=== PATIENT | female | born 1980 | race Caucasian/White ===

== ENCOUNTER → 2019-05-27 08:31 | Outpatient (CLI) | payer OTHER, MEDICAID, SELFPAY ==
--- NOTE | 2019-05-27 | DI.US.S_ITS ---
PROCEDURE: US OB >= 14 WEEKS FETUS INDICATIONS: anatomy scan OUTSIDE/PRIOR DATING DATA: Last menstrual period (LMP): 12/28/18. LMP-based estimated date of delivery (CHELSY): 10/04/19. First dating scan (date and location): 05/27/19. Estimated date of delivery (CHELSY) from first dating scan: 10/01/19. TECHNIQUE: Real-time scanning was performed of the fetus, with image documentation and biometric measurements. COMPARISON: None. FINDINGS: General: A single living intrauterine gestation is present. Presentation: Transverse. Placenta: Placental position is anterior, without previa. Amniotic fluid index: 15.3 cm, normal range is 5-24 cm. heart rate: 141 beats per minute. Maternal cervical canal: 5.4 cm long. Normal lower limit is 2.5 cm. biometrics: Biparietal diameter: 21 weeks 3 days Head circumference: 21 weeks 6 days Abdominal circumference: 23 weeks Femur length: 21 weeks 2 days Estimated gestational age from initial scan/LMP: 21 weeks 3 days Composite gestational age from present scan: 21 weeks 6 days Estimated weight and percentile: 479 g; 81st percentile Measurement variability for biometric dating: +/- 7 days from 14 weeks to 15 weeks 6 days gestation, +/- 10 days from 16 weeks to 21 weeks 6 days gestation, +/- 2 weeks from 22 weeks to 27 weeks 6 days gestation, +/- 3 weeks for 28 weeks gestation or later. weight reference: 4500 g or EFW >90/95% is considered macrosomia or large for gestational age. EFW <10% is small for gestational age. EFW 5% or less is considered intra-uterine growth restriction. Anatomic survey: Neuro: Ventricles are non-dilated at less than 10 mm. Cisterna magna is normal at 3-11 mm. Cerebellum is normal in size and morphology. Nuchal skin fold: Normal at less than 6 mm between 14-21 weeks gestational age. Face: Nose and lips are normal. Facial profile Not well-seen. Spine: No evidence for spina bifida. Heart: 4-chambered heart is present, and cardiac outflow tracts are not well seen.. Diaphragm: Diaphragm is intact. Stomach: Left-sided stomach is present. Kidneys: No hydronephrosis. Normal is less than 5 mm in 2nd trimester, less than 7 mm in 3rd trimester. Cord: 3-vessel cord has orthotopic insertion. Bladder: Left lower extremity not well seen. Extremities: All 4 extremities identified. IMPRESSION: 1. 21 weeks 6 days torres IUP corresponding to ultrasound CHELSY of 10/01/19. 2. Left lower extremity, cardiac outflow tracts and facial profile not well-visualized; otherwise normal anatomy. Followup recommended. Dictated by: Jaime ALEJO Interpreted: Radha Rodarte MD on 05/27/2019 at 9:59 Approved by: Radha Rodarte MD, PhD on 05/27/2019 at 10:27
== END ==
PROVIDERS: PCP Nurse Practitioner Obstetrics & Gynecology; Visit Provider Nurse Practitioner Obstetrics & Gynecology
DX: Z36.89 Encounter for other specified antenatal screening (principal); Z3A.21 21 weeks gestation of pregnancy
CPT/HCPCS: 76811

== ENCOUNTER → 2019-06-23 07:02 | Outpatient (CLI) | payer OTHER, MEDICAID, SELFPAY ==
--- NOTE | 2019-06-23 | DI.US.S_ITS ---
PROCEDURE: US OB FOLLOW UP INDICATIONS: FOLLOW-UP ANATOMY OUTSIDE/PRIOR DATING DATA: Last menstrual period (LMP): 12/28/18. LMP-based estimated date of delivery (CHELSY): 10/04/19. First dating scan (date and location): 05/27/19. Estimated date of delivery (CHELSY) from first dating scan: 10/01/19. TECHNIQUE: Real-time scanning was performed of the fetus, with image documentation. Endovaginal scanning: Performed COMPARISON: [facility], OB >= 14 WEEKS FETUS, 05/27/2019, 8:47. FINDINGS: A single living intrauterine gestation is present. Presentation: Vertex Placenta: Not evaluated. Amniotic fluid index: 14.8 cm, normal range is 5-24 cm. heart rate: 148 beats per minute. Maternal cervical canal: Not measured. Estimated gestational age from initial scan: 25 weeks 5 days. Right lateral ventricle measures 9 mm at the atrium. Left lateral ventricle is not visualized and cannot be evaluated. Right ventricular outflow tract and left ventricular outflow tract are within normal limits. left lower extremity is normal. profile, nose/lips are within normal limits. face not well visualized do to advanced gestational age and position. IMPRESSION: 1. Single living intrauterine fetus. 2. Limited anatomic survey demonstrates facial profile, nose/lips, cardiac outflow tracts and left lower extremity which are within normal limits. face not well visualized do to gestational age and position. Right cerebral ventricle is nondilated the less than 10 mm. Left cerebral ventricle is not visualized and cannot be evaluated. Dictated by: Radha Rodarte MD, PhD on 06/23/2019 at 11:50 Approved by: Radha Rodarte MD, PhD on 06/23/2019 at 11:58
[2019-06-23 08:52] LABS: Hematocrit 30.9 % (36-46); Mean Corpuscular HGB Conc 35.7 % (30-36); Mean Corpuscular Hemoglobin 34.1 PG (26-34); Mean Corpuscular Volume 95.4 fL (80-100); Platelet Count 203 X10^3/uL (150-400); Red Blood Cell Count 3.24 X10^6/uL (4.0-5.2); Red Cell Distribution Width 12.8 % (11.6-14.8); White Blood Cell Count 7.4 X10^3/uL (4.5-11.0)
[2019-06-23 09:04] LABS: Glucose Fasting 104 mg/dL (70-100)
[2019-06-23 10:20] LABS: Thyroid Stimulating Hormone 2.09 uIU/mL (0.47-4.68)
[2019-06-23 10:32] LABS: Glucose Tol Interpretation INTERPRETATION
[2019-06-23 10:39] LABS: Glucose 1 Hour 187 mg/dL (70-170)
[2019-06-23 12:04] LABS: Glucose 2 Hour 109 mg/dL (70-140)
== END ==
PROVIDERS: PCP Nurse Practitioner Obstetrics & Gynecology; Visit Provider Nurse Practitioner Obstetrics & Gynecology
DX: Z36.2 Encounter for other antenatal screening follow-up (principal); O09.522 Supervision of elderly multigravida, second trimester; E03.9 Hypothyroidism, unspecified; Z13.1 Encounter for screening for diabetes mellitus; Z3A.25 25 weeks gestation of pregnancy
CPT/HCPCS: 36415; 76816; 82951; 82952; 84436; 84443; 85027

== ENCOUNTER → 2019-07-23 13:00 | Outpatient (CLI) | payer OTHER, MEDICAID, SELFPAY ==
--- NOTE | 2019-07-23 13:59 | DIET.PN ---
INITIAL GESTATIONAL DIABETES ASSESSMENT ASSESS:? Ms. Rockwell is referred for gestational diabetes. She reports family hx of diabetes. This is her second with GDM. She took metformin and discontinued monitoring BG. She reports starting on metformin x 2 wks ago and has noticed FBG going up. She reports only mild changes in her daily eating habits, but did notice a reduced FBG after drinking more water and walking the day before. ? CHELSY:?Oct 01, 2019 ? WKS GESTATION:?? 29 wks ?LABS: OGTT: 104 H 1 hr: 187 2hr: 109 ? MEDS: metformin 500 mg BID ? DIET:? B: eggs, toast/eng muffin, grapefruit L: leftovers D: beef stew; pasta dish w/ protein; grilled cheese sandwich; veggie heavy Sn: ice cream, cashews, cheese sticks, oranges, berries ? HT:? 64? PRE-PREG WT:? 195 lb ? PRE-PREG BMI:???33.5 ? CURRENT WT : 203 lb ? TOTAL WT GAIN:? EXERCISE: walking, house chores NUTRITION DX 1. Altered nutrition related lab values r/t gestational diabetes as evidenced by recent labs (OGGT). INTERVENTION 1. Discussed pathophysiology of gestational diabetes and impact of hormone and nutrition/diet on blood sugar control.? Discussed fed versus non-fed state.? 2. Recommended checking fasting, pre-meal and 1hr post prandial (3x/day).? Discussed goals for glycemic control (<95 FBG, <140 1-hr PP).? 3. Discussed the effect of carbohydrates/protein/fat on blood sugar control.? Stressed importance of consistent carbohydrate intake at each meal and provided instructions for recommended servings/portions of carbohydrates/protein per meal.? Provided pt with educational material. 4. Introduced carbohydrate counting and measuring carbohydrate content via servings sizes and reading nutrition labels.? Provided handouts.? Pt will need further review 5. Discussed importance of meal timing and not going >3 hours between meals.? Provided sample meal schedule for pt.? Pt agreeable.?? 6. Discussed importance a pre-nathan vitamin and including food sources of calcium, vitamin D, iron and folic acid for baby and mother?s nutrition support. 7. Discussed caffeine intake. Recommend no more than 200 mg/day (1 cup coffee). 8. Discussed rule of 15 for hypoglycemia. 9. Recommend patient purchase Urine Ketone strips and instructed on use and when to contact provider. 10. Recommended patient continue exercise as appropriate per PCP approval. 11. Patient may need additional medication management, will follow-up with plan of care at next visit after reviewing glucose results.? MONITOR/EVAL: Follow up scheduled X 1 week. Good compliance expected. Review: carb sources, carb counting, portion size, meal timing, BG log, weight.
== END ==
PROVIDERS: PCP Nurse Practitioner Obstetrics & Gynecology; Referring Provider Nurse Practitioner Obstetrics & Gynecology; Visit Provider Nurse Practitioner Obstetrics & Gynecology
DX: O24.415 Gestational diabetes mellitus in pregnancy, controlled by oral hypoglycemic drugs (principal); Z3A.29 29 weeks gestation of pregnancy; Z71.3 Dietary counseling and surveillance
CPT/HCPCS: G0108

== ENCOUNTER → 2019-07-30 14:04 | Outpatient (CLI) | payer OTHER, MEDICAID, SELFPAY ==
--- NOTE | 2019-07-30 15:42 | DIET.PN ---
Gestational Diabetes Follow Up ? ASSESS:? Mrs. Rockwell is in for GDM 1 week follow up. She remains concerned with elevated blood sugar and is feeling overwhelmed as she has been making dietary changes. She has increased her protein intake with meals and is avoiding fruit and dairy after dinner. She admits she does not always think about what is in her food (ex. Pulled pork mac n cheese). She does have some personal stress in her life right now and is not on her normal sleep patterns. Discussed how stress and sleep patterns effect glucose control. ? LABS: FB-112 (0% within range) 1 hr PP:??128-150 (79% within range) ? Weight: 201 lb (lost 2 lb in 1 week) Medication: Metformin 500 mg pm ? NUTRITION Dx? 1. Altered nutrition related labs r/t gestational diabetes aeb recent labs (OGGT). ? INTERVENTION? 1. Reviewed blood sugar log and implications/reasons for elevated/decreased blood sugar.? Pt with good understanding.? 2. Reviewed carbohydrate counting and importance of consistent carbohydrate intake.? 3. Reviewed meal intake and importance of balanced meals. 4. Discussed evening snacks ideas. Recommended avoiding milk and fruit after dinner to help with elevated FBG. 5. Recommended pt avoid processed foods as much as possible and aim to get most nutrients from refrigerated options. Suggested cutting up vegetables and making protein rich salads (chicken/egg salad) ahead of time for quick snacks. 6. Discussed possible need for increased medication management if >80% of fasting and post-prandial readings are not within recommended values (FBG<95, 1 hr PP <140). Pt agreeable. 7. Recommended aiming for 20-30 min of moderate exercise each day at minimum 10 min increments. ? PLAN: She is willing to avoid as many processed foods as she can and will begin making snacks that are readily available to avoid high sugar snacks. She has agreed to walking daily while her toddler is napping. Discussed possibility of increasing metformin to 500 mg am/pm. Will discuss with provider. MONITOR/EVALUATE: Pt receptive to information provided.? Will schedule follow up in 4 weeks. Patient will call sooner if blood glucose is not in range.
== END ==
PROVIDERS: PCP Nurse Practitioner Obstetrics & Gynecology; Referring Provider Nurse Practitioner Obstetrics & Gynecology; Visit Provider Nurse Practitioner Obstetrics & Gynecology
DX: O24.415 Gestational diabetes mellitus in pregnancy, controlled by oral hypoglycemic drugs (principal); Z71.3 Dietary counseling and surveillance
CPT/HCPCS: G0108

== ENCOUNTER → 2019-09-09 12:49 | Outpatient (CLI) | payer OTHER, MEDICAID, SELFPAY ==
--- NOTE | 2019-09-09 | DI.US.S_ITS ---
PROCEDURE: US OB LIMITED INDICATIONS: EFW; BPP OUTSIDE/PRIOR DATING DATA: Last menstrual period (LMP): 12/28/18. LMP-based estimated date of delivery (CHELSY): 10/04/19. First dating scan (date and location): 05/27/19. Estimated date of delivery (CHELSY) from first dating scan: 10/01/19. TECHNIQUE: Real-time scanning was performed of the fetus, with image documentation and biometric measurements. COMPARISON: None. FINDINGS: General: A single living intrauterine gestation is present. Presentation: Vertex. Placenta: Placental position is anterior, without previa. Amniotic fluid index: 13.5 cm, normal range is 5-24 cm. heart rate: 147 beats per minute. Maternal cervical canal: Not well-seen biometrics: Biparietal diameter: 36 weeks 2 days Head circumference: 39 weeks Abdominal circumference: 40 weeks Femur length: 36 weeks 6 days Estimated gestational age from initial scan: 36 weeks 6 days Composite gestational age from present scan: 38 weeks 0 days Estimated weight and percentile: 3570 g; 94% of Measurement variability for biometric dating: +/- 7 days from 14 weeks to 15 weeks 6 days gestation, +/- 10 days from 16 weeks to 21 weeks 6 days gestation, +/- 2 weeks from 22 weeks to 27 weeks 6 days gestation, +/- 3 weeks for 28 weeks gestation or later. weight reference: 4500 g or EFW >90/95% is considered macrosomia or large for gestational age. EFW <10% is small for gestational age. EFW 5% or less is considered intra-uterine growth restriction. Normal biophysical profile of the fetus during 2 points for tone, movement, respiration and amniotic fluid. Other: Normal appearance of the left lateral ventricle measuring 9 mm. Normal appearance of the left cardiac outflow tract, left lower extremity including the left ankle, face not well visualized. IMPRESSION: 1. Single living IUP redemonstrated than interval growth is greater than normal. Developing macrosomia cannot be excluded. 2. Normal biophysical profile. 3. face again not well seen secondary to positioning otherwise normal appearance of the lateral ventricle, cardiac outflow tracts, left lower extremity including the left ankle. Dictated by: Jaime Engel [facility] Interpreted: Rohit Rdz MD on 09/09/2019 at 14:37 Approved by: Rohit Rdz M.D. on 09/09/2019 at 15:57
== END ==
PROVIDERS: PCP Nurse Practitioner Obstetrics & Gynecology; Referring Provider Nurse Practitioner Obstetrics & Gynecology; Visit Provider Nurse Practitioner Obstetrics & Gynecology
DX: O26.843 Uterine size-date discrepancy, third trimester (principal); O24.415 Gestational diabetes mellitus in pregnancy, controlled by oral hypoglycemic drugs; Z3A.38 38 weeks gestation of pregnancy
CPT/HCPCS: 76815; 76819

== ENCOUNTER → 2019-09-11 14:15 | Outpatient (ROUT) | payer OTHER, MEDICAID, SELFPAY | PROVIDERS: PCP Nurse Practitioner Obstetrics & Gynecology; Visit Provider Nurse Practitioner Obstetrics & Gynecology | DX: Z36.85 Encounter for antenatal screening for Streptococcus B (principal) | CPT/HCPCS: 87081 ==

== ENCOUNTER → 2019-09-23 12:48 | Outpatient (CLI) | payer OTHER, MEDICAID, SELFPAY ==
--- NOTE | 2019-09-23 | DI.US.S_ITS ---
PROCEDURE: US OB LIMITED INDICATIONS: GESTATIONAL DIABETES MELLITUS IN OUTSIDE/PRIOR DATING DATA: Last menstrual period (LMP): 12/28/18. LMP-based estimated date of delivery (CHELSY): 10/04/19. First dating scan (date and location): 05/27/19. Estimated date of delivery (CHELSY) from first dating scan: 10/01/19. TECHNIQUE: Real-time scanning was performed of the fetus, with image documentation. Endovaginal scanning: Not performed COMPARISON: [facility], US OB LIMITED, 09/09/2019, 12:57. FINDINGS: A single living intrauterine gestation is present. Presentation: Vertex Placenta: Placental position is anterior, without previa. Amniotic fluid index: 23.6 cm, normal range is 5-24 cm. largest pocket measures 8.6 cm. heart rate: 158 beats per minute. Maternal cervical canal: Not well-seen. BPD: 9.4 cm, 38 weeks, 2 days HC: 34 cm, 39 weeks, 3 days AC: 36 cm, 40 weeks, one day FL.: 7.9 cm, 40 weeks, one day Estimated gestational age from initial scan: 38 week 6 days Estimated gestational age from current scan: 39 weeks, 4 days. Estimated weight is 3889 g, 87th percentile. biophysical profile score tone: 2 movement: 2 Respiration: 2 Largest pocket: 0 IMPRESSION: 1. Single live intrauterine . Normal growth. 2. Suggestion of polyhydramnios. biophysical profile score is 6/8 as above. Dictated by: Solo Ortiz M.D. on 09/23/2019 at 13:57 Approved by: Solo Ortiz M.D. on 09/23/2019 at 14:02
== END ==
PROVIDERS: PCP Nurse Practitioner Obstetrics & Gynecology; Referring Provider Nurse Practitioner Obstetrics & Gynecology; Visit Provider Nurse Practitioner Obstetrics & Gynecology
DX: O24.415 Gestational diabetes mellitus in pregnancy, controlled by oral hypoglycemic drugs (principal); Z3A.38 38 weeks gestation of pregnancy
CPT/HCPCS: 76815

== ENCOUNTER 2019-09-28 07:38 | Inpatient (IN) | payer OTHER, MEDICAID, SELFPAY ==
--- NOTE | 2019-09-28 07:53 | PM.OBHP.1 ---
OB HPI Date/Time Date of admission: 09/28/19 Date Patient Seen: 09/28/19 Time Patient Seen: 07:45 History of Present Condition Chief complaint: Observation : 3 Para: 1 Estimated Date of Delivery: 10/04/19 Estimated Gestational Age (weeks): 39.1 Narrative: Sheri Rockwell is a 38 year old female here for IOL for GDMA2. Had Scanlon balloon placed in clinic last night that was able to immediately be pulled through the cervix. Was able to sleep well. IOL consent signed 09/27/19. Planning epidural. complicated by obesity, hypothyroid, anemia and GDMA2 (Metformin). 36wk growth US EFW 3570g/94%. 38wk BPP-8/8, LASHAE-23.6cm. Indications Indication for induction OB: medical complication (GDMA2) History of Present care: good care, initiated at week # (12), number of visits (12) and pounds weight gain (13) Dating criteria: LMP confirmed by 1st trimester US Ultrasounds: normal mid trimester US Obstetrical complications: gestational diabetes Medical complications: other (Obesity, hypothyroid, AMA) Preadmission Labs Blood type: O (+) positive -: Antibody screen: negative, GBS status: negative, HBsAG: negative, HIV: negative and RPR/VDLR: negative -: Chlamydia screen: not detected and Gonorrhea screen: not detected -: Rubella: immune HCT: 30.9 HCAB: negative Cell-free DNA: negative, female 3 hr GTT: 2 hr (104/187/109) Prior (ies) History: 04/05/2016: NSVB- IOL @ 37wks for oligohydramnios, epidural, male ([facility]), intact perineum, depression Evaluation Evaluation Baseline heart rate: 13 Variability: Moderate (11-25) monitor accelerations: Present monitor decelerations: Variable Uterine Contraction Intensity: Mild Category of Tracing: I Cervical dilation (cm): 4 Cervical effacement (%): 70 station: -2 PFSH Family History (Updated 09/28/19 @ 08:10 by Marla Lugo CNM) Mother Diabetes mellitus Social History (Updated 09/28/19 @ 08:10 by Marla Lugo CNM) marital status: number of children: 3 household members: spouse lives independently: Yes housing: house pets and animals: Yes education level: college Meds Home Medications and Allergies Home Medications Medication Instructions Recorded Confirmed Type amoxicillin 875 mg-potassium 1 tab PO BID #20 tab 07/30/18 Rx clavulanate 125 mg tablet ferrous sulfate 09/28/19 History levothyroxine 09/28/19 History metformin 2,000 mg 09/28/19 History Allergies Allergy/AdvReac Type Severity Reaction Status Date / Time No Known Drug Allergies Allergy Verified 07/30/18 12:37 Review of Systems Review of Systems ROS: Yes All systems reviewed with the patient and are negative except as otherwise documented Exam Vital Signs (past 8 hours): BP 127/80, HR79, T35.6C Temporal Chest Chest: normal inspection of the chest Resp Effort & Inspection: normal respiratory effort Auscultation: clear to auscultation bilaterally Cardio Rate: regular rate Rhythm: regular rhythm Heart Sounds: S1 normal and S2 normal OB/External & Speculum: deferred Presentation: vertex Estimated Weight (lbs): 8 Psych Appearance: grossly normal and well kempt Affect: animated and anxious affect Attitude: cooperative Thought Content: normal Assessment and Plan Assessment and Plan Assessment and Plan narrative: Admit, routine orders w/ preeclampsia panel and random glucose added. Begin pitocin titration to adequate contraction pattern. Epidural when requested. Will consider AROM after adequate contraction pattern established. Reassess in 4-6 hours or sooner, PRN. Time Spent with Patient Total time spent with greater than 50% in coordination of care (as documented) at patient's floor/unit and/or counseling patient:: 25 - 35 minutes
[2019-09-28] MEDS: OXYTOCIN PREMIX 30 UNIT/500 ML PLAST..BAG IV (09:03)
[2019-09-28] MEDS: LACTATED RINGERS 1,000 ML 100 ML IV ×2 (09:03→19:42)
[2019-09-28 09:06] LABS: Add Manual Diff / Slide Review NO; Basophils Absolute Auto 0 /uL (0-100); Basophils Percent Auto 0.2 % (0-2); Eosinophils Absolute Auto 100 /uL (0-450); Hemoglobin 12.5 g/dL (12.0-16.0); Lymphocytes Absolute Auto 1700 /uL (1100-4500); Lymphocytes Percent Auto 23.4 % (25-40); Mean Corpuscular HGB Conc 34.7 % (30-36); Mean Corpuscular Hemoglobin 34.2 PG (26-34); Mean Corpuscular Volume 98.4 fL (80-100); Monocytes Absolute Auto 400 /uL (0-900); Neutrophils Absolute Auto 4900 /uL (1500-7000); Neutrophils Percent Auto 68.4 % (50-75); Platelet Count 194 X10^3/uL (150-400); Red Blood Cell Count 3.66 X10^6/uL (4.0-5.2); Red Cell Distribution Width 13.5 % (11.6-14.8); White Blood Cell Count 7.2 X10^3/uL (4.5-11.0)
[2019-09-28 09:19] LABS: Glucose 136 mg/dL (70-100)
[2019-09-28 09:20] LABS: Aspartate Aminotransferase 37 IU/L (14-36); Blood Urea Nitrogen 9 mg/dL (7-17); Estimated Glomerular Filt Rate > 60.0 mL/min (>60); Uric Acid 4.3 mg/dL (2.5-6.2)
[2019-09-28 11:48] LABS: Creatinine Urine Random 143.8 mg/dL; Protein (Total) Urine Random 20 mg/dL (0-12); Protein Creatinine Ratio Urine 0.13 GRAM/24H
--- NOTE | 2019-09-28 13:08 | PM.OBPNLAB ---
Date/Time Date Patient Seen: 09/28/19 Time Patient Seen: 12:45 Pain Control Pain control: tolerating well and epidural Comments: Patient elected epidural prior to AROM, remained comfortable prior to placement. Pelvic Exam Dilation (cm): 5 Effacement (%): 70 station: -2 Amniotic membrane status: Ruptured Comments: AROM @ 1248 for copious, clear fluid Contractions Contractions on admission: none Monitor mode: External Pitocin rate (mU/min): 14 Contraction frequency (min): 3 Contraction duration (min): 1 Contraction pattern: Regular Contraction intensity: Mild Status status: Category l Heart Rate Baseline: 130 Monitor Decelerations: Variable (rare, mild) Monitor Variability: Moderate Assessment and Plan Assessment: induction ongoing Plan: continuous present management Comments: Reassess in 4 hours or sooner, PRN. OB Back-up/ aware of patient admit status and POC.
[2019-09-28 13:52] VITALS: BP 127/80
--- NOTE | 2019-09-28 16:53 | PM.OBPNLAB ---
Date/Time Date Patient Seen: 09/28/19 Time Patient Seen: 16:45 Pain Control Pain control: tolerating well and epidural Pelvic Exam Dilation (cm): 7 Effacement (%): 70 station: -2 Amniotic membrane status: Leaking Comments: clear Contractions Contractions on admission: none Monitor mode: External Pitocin rate (mU/min): 11 Contraction frequency (min): 3 Contraction duration (min): 1 Contraction pattern: Regular Contraction intensity: Mild Status status: Category ll Heart Rate Baseline: 135 Monitor Accelerations: Present Monitor Decelerations: Variable Monitor Variability: Moderate Comments: Overall reassuring Assessment and Plan Assessment: induction ongoing Plan: continuous present management Comments: Encourage frequent position changes w/ peanut ball. Reassess in 4 hours or sooner, PRN.
[2019-09-28] MEDS: FENT 2MCG/ML BUPIV 0.125% EPI 200 MCG/100 ML PLAST..BAG 10 MCG EPIDURAL ×2 (20:05→21:21)
--- NOTE | 2019-09-28 20:47 | PM.OBPNLAB ---
Date/Time Date Patient Seen: 09/28/19 Time Patient Seen: 08:35 Pain Control Pain control: epidural Comments: C/O increased pain, low abdominal, above PS. VS: 142/76, HR85, T37.0C Temporal Pelvic Exam Dilation (cm): 9 Effacement (%): 100 station: 0 Amniotic membrane status: Leaking Comments: amniotic fluid remains clear Contractions Date/Time contractions began: 1245 Contractions on admission: none Monitor mode: External Pitocin rate (mU/min): 11 Contraction frequency (min): 3 Contraction duration (min): 60 Contraction pattern: Regular Contraction intensity: Mild Status status: Category ll Heart Rate Baseline: 135 Monitor Accelerations: Present Monitor Decelerations: Variable (mild) Monitor Variability: Moderate Comments: overall reassuring Assessment and Plan Assessment: induction ongoing Plan: continuous present management Comments: at bedside for epidural bolus. Reassess in 1-2 hours or sooner, PRN. Anticipate NSVB.
--- NOTE | 2019-09-28 23:10 | PM.OBPRVD ---
 Events: Gestational Diabetes (GDMA2) and Labor Induction Labor & Delivery Delivery date: 09/28/19 Intrapartal events: None Induction method: per pitocin protocol (then AROM) Delivery augmentation: pitocin Delivery monitor: external FHT and external uterine Route of delivery: L&D Laceration Description: None Estimated blood loss (mL): 100 Anesthesia type: Epidural Narrative: After laboring down for 1 hour, pt was encouraged to push at C/C/+1. Patient pushed well with coaching and encouragement. NSVB of a viable baby girl in direct OA position w/ transverse shoulder. There was no nuchal cord or shoulder dystocia. Mother had to increase pushing effort for delivery of abdomen and buttocks. was placed on maternal abdomen for drying and stimulation. Remaining 30 units of pitocin in 500mL LR was increased to 350mL for active management of the third stage of labor. Cord was double clamped by CNM and cut by FOB w/ <60 seconds of DCC, per parents request. Cord blood sample was collected. Gentle cord traction and single maternal push led to spontaneous, Schultze delivery of an apparently intact placenta, membranes and 3VC. Fundus immediately firm and bleeding minimal. Vagina and perineum inspected and intact. QBL 100mL. Both mother and baby stable as I left the room. Baby 1: Infant gender: Female Presentation: vertex Placenta delivery description: Spontaneous cord vessel description: 3 Vessels score (1 min): 7 score (5 min): 8 Narrative: Plan for aftercare: Routine PP orders
[2019-09-29] MEDS: LANOLIN OINT 7 GM 1 APPLIC TOP (01:00)
[2019-09-29] MEDS: ONDANSETRON 4 MG/2 ML INJ IV (01:14)
[2019-09-29] MEDS: OXYCODONE IR 5 MG TABLET PO ×2 (01:39→05:44)
[2019-09-29] MEDS: KETOROLAC 30 MG/ML VIAL IV (01:40)
[2019-09-29] MEDS: fentaNYL 100 MCG/2 ML INJ IV (02:36)
--- NOTE | 2019-09-29 03:19 | PM.PN.1 ---
Subjective Subjective Date Patient Seen: 09/29/19 Time Patient Seen: 02:45 Interval history: Called by RN for patient complaint of pain and rectal pressure. Patient on toilet, holding pressure on her anus, writhing in pain. Has received Toradol 30mg IV and oxycodone 5mg PO >30 minutes ago with no relief. Patient given Fentanyl 100mcg iV with good pain relief for 15 minutes, then return of pain. Exam: moderate generalized edema to vagina and perineum. Fullness between posterior vaginal floor and rectum. Suspect hematoma. Patient verbally consented to small exploration of mass in the room. Posterior vaginal floor cleansed w/ betadine. 2% lidocaine local given (unable to draw back blood from the syring) and small incision made w/ 10 blade, minimal blood return. Incision hemostatic w/ pressure, single lap left in place. OC manager fashion consulted by phone: recommended antibiotics and longer acting opioids overnight and he will examine in the morning. Orders placed and patient and her notified. Exam Vital Signs (past 8 hours): BP 136/75, HR 93, RR18. T98.8F Temporal Objective Labs Result Diagrams: 09/28/19 08:53 09/28/19 08:53 Labs: Laboratory Results - last 24 hr 09/28/19 09/28/19 09/28/19 08:53 08:53 08:53 WBC 7.2 RBC 3.66 L Hgb 12.5 Hct 36.0 MCV 98.4 MCH 34.2 H MCHC 34.7 RDW 13.5 Plt Count 194 Neut % (Auto) 68.4 Lymph % (Auto) 23.4 L [place] % (Auto) 6.0 Eos % (Auto) 2.0 Baso % (Auto) 0.2 Neut # (Auto) 4900 Lymph # (Auto) 1700 [place] # (Auto) 400 Eos # (Auto) 100 Baso # (Auto) 0 BUN 9 Creatinine 0.41 L Estimated GFR > 60.0 BUN/Creatinine Ratio 22.0 Glucose Uric Acid 4.3 AST 37 H U Random Total Protein Urine Creatinine Protein/Creatinin Ratio Blood Type O Positive Antibody Screen Negative 09/28/19 09/28/19 08:53 11:22 WBC RBC Hgb Hct MCV MCH MCHC RDW Plt Count Neut % (Auto) Lymph % (Auto) [place] % (Auto) Eos % (Auto) Baso % (Auto) Neut # (Auto) Lymph # (Auto) [place] # (Auto) Eos # (Auto) Baso # (Auto) BUN Creatinine Estimated GFR BUN/Creatinine Ratio Glucose 136 H Uric Acid AST U Random Total Protein 20 H Urine Creatinine 143.8 Protein/Creatinin Ratio 0.13 Blood Type Antibody Screen Assessment & Plan Time Spent With Patient Time with patient: Greater than 35 minutes
[2019-09-29] MEDS: CEFOTETAN 2 GM/50 ML PIGGYBACK IV (03:31)
[2019-09-29] MEDS: HYDROMORPHONE 2 MG INJ 1 MG IV ×2 (03:36→05:47)
[2019-09-29] MEDS: DERMOPLAST SPRAY 20% 60 ML 1 SPRAY TOP (05:53)
[2019-09-29] MEDS: ACETAMINOPHEN 325 MG TABLET 650 MG PO (08:19)
[2019-09-29] MEDS: DOCUSATE 100 MG CAPSULE PO ×2 (08:20→21:45)
[2019-09-29] MEDS: IBUPROFEN 600 MG TABLET PO ×3 (08:20→21:46)
[2019-09-29] MEDS: HYDROMORPHONE 1 MG INJ IV (08:38)
[2019-09-29] MEDS: OXYCODONE IR 5 MG TABLET 10 MG PO ×4 (10:02→23:06)
--- NOTE | 2019-09-29 15:56 | P.PNOB_ITS ---
Subjective - OB Subjective Patient comments: pain well controlled [place] baby status: doing well feeding status: exclusively breast feeding Date Patient Seen: 09/29/19 Time Patient Seen: 15:00 Interval history: Pt laying in bed with her daughter. Has been voiding and ambulating independently. well, though her daughter is currently sleepy. Lochia light, no clots. Rectal pain and pressure persists, but is now decreased and well controlled w/ PO medication. Tolerating general diet. Plans to stay in hospital tonight after talking w/ about care. Exam Vital Signs (past 8 hours): BP101/65, HR69, RR17, T98.4F Temporal Narrative Exam Narrative: Hematoma smaller this morning, examine by , now golf ball sized. FF@ u, lochia light. Perineal edema resolved. Objective Labs Result Diagrams: 09/28/19 08:53 09/28/19 08:53 Assessment & Plan Assessment and Plan (1) Encounter for full-term uncomplicated delivery: Problem details: Routine PP care Status: Acute Current Visit: Yes (2) Vaginal hematoma: Problem details: Sitz soaks, Pain meds, may use a doughnut for sitting Status: Acute Current Visit: Yes Time Spent With Patient Time: Total time spent is greater than 50% in coordination of care (as documented) at patient's floor/unit and/or counseling patient: Time with patient: 25 - 35 minutes
[2019-09-30] MEDS: ACETAMINOPHEN 325 MG TABLET 650 MG PO (03:37)
--- NOTE | 2019-09-30 07:32 | P.DS_ITS ---
Discharge Providers Provider Date of admission: 09/28/19 07:38 Discharge Date: 09/30/19 Primary care physician: Marla Lugo CNM Consults: 09/28/19 07:41 Consult to Anesthesiology Urgent Comment: Consulting Provider: Golden Dorantes Reason for consultation: when patient requests Has provider been notified: Yes 09/29/19 23:08 Consult to Warehouse Assistant Routine Comment: Discharge provider: Marla Lugo CNM Summary Discharge Diagnosis (1) Encounter for full-term uncomplicated delivery: Status: Acute Problem Details: Routine PP recommendations (2) Vaginal hematoma: Status: Acute Problem Details: Sitz soaks, Pain meds, may use a doughnut pillow for sitting Time Spent with Patient Time attestation: Total time spent providing and/or coordinating discharge services: Objective Labs Result Diagrams: 09/28/19 08:53 09/28/19 08:53 Exam Vital Signs (past 8 hours): BP 118/67, HR88, RR18, 98.8F Temporal Other: Fundus firm @ U, lochia light, per RN. Discharge Plan Discharge Plan Patient Disposition: Home Discharge orders & Medications Prescriptions: New acetaminophen 325 mg Tablet 650 mg PO Q6HR PRN (Reason: Pain, Mild (1-3)) 14 Days Qty: 60 RF: 2 docusate sodium [DOK] 100 mg Capsule 100 mg PO BID 14 Days Qty: 28 RF: 2 ibuprofen 600 mg Tablet 600 mg PO Q6HR PRN (Reason: Pain, Mild (1-3)) 14 Days Qty: 60 RF: 2 oxycodone 5 mg Tablet 5 mg PO Q4HR PRN (Reason: Pain, Moderate (4-6)) 5 Days Qty: 15 RF: 0 Discontinued amoxicillin-pot clavulanate 875-125 mg tablet 1 tab PO BID Qty: 20 RF: 0 levothyroxine 50 mcg tablet RF: 0 metformin 1,000 mg tablet 2,000 mg RF: 0 ferrous sulfate RF: 0 Follow up/Referrals: Marla Lugo CNM [Primary Care Provider] - (October 14 @ 1200 November 08 @ 1200) Diet/Activity/Treatments Diet: Regular Activity: pelvic rest x 6 weeks Skin/Wound/Dressing Care Report to your healthcare provider any signs of infection, such as:: chills, fever, increased pain, unusual drainage and unusual redness Visit Report/Discharge Packet Instructions: DI for Depression Discharge Data Primary Care Provider: Marla Lugo
[2019-09-30] MEDS: DOCUSATE 100 MG CAPSULE PO (11:30)
[2019-09-30] MEDS: IBUPROFEN 600 MG TABLET PO (11:30)
[2019-09-30] MEDS: LANOLIN OINT 7 GM 1 APPLIC TOP (11:31)
== END 2019-09-30 12:48 | disposition home or self-care (01) | DRG 560 ==
PROVIDERS: Admitting Provider Nurse Practitioner Obstetrics & Gynecology; PCP Nurse Practitioner Obstetrics & Gynecology; Referring Provider Nurse Practitioner Obstetrics & Gynecology; Visit Provider Nurse Practitioner Obstetrics & Gynecology
DX: O24.425 Gestational diabetes mellitus in childbirth, controlled by oral hypoglycemic drugs (principal); Z3A.39 39 weeks gestation of pregnancy; Z37.0 Single live birth; E66.9 Obesity, unspecified; E03.9 Hypothyroidism, unspecified; D64.9 Anemia, unspecified; O71.7 Obstetric hematoma of pelvis
CPT/HCPCS: 01967; 59050; 59200; 82570; 82947; 84156; 84450; 84550; 85025; 86850; 86900; 86901; G0379; J1170; J1885; J2405; J2590; J3010

== ENCOUNTER → 2020-08-17 10:53 | Outpatient (CLI) | payer OTHER, MEDICAID, SELFPAY ==
--- NOTE | 2020-08-17 | DI.US.S_ITS ---
PROCEDURE: US PELVIC COMPLETE INDICATIONS: PELVIC AND PERINEAL PAIN TECHNIQUE: Real-time scanning was performed of the pelvic organs, with image documentation. Additional endovaginal scanning was necessary due to incomplete visualization of the adnexal and endometrial structures by transabdominal scanning. COMPARISON: None. FINDINGS: Uterus: Uterus is anteverted and normal in size at 4.8 x 5.5 x 8.0 cm. The endometrium measures 8.2 mm in combined thickness. Centrally positioned IUD within the endometrial canal near the uterine fundus. Several scattered nabothian cysts are incidentally noted. Ovaries: The right ovary measures 3.0 x 2.0 x 2.0 cm and the left measures 3.3 x 2.6 x 2.0 cm. Other: No pathologic free abdominal or pelvic fluid. IMPRESSION: Centrally positioned IUD, no abnormal fluid collection within the endometrial canal, or mass. Normal appearing ovaries. Dictated by: Luis Nance M.D. on 08/17/2020 at 13:31 Approved by: Luis Nance M.D. on 08/17/2020 at 13:34
== END ==
PROVIDERS: PCP Nurse Practitioner Obstetrics & Gynecology; Referring Provider Nurse Practitioner Obstetrics & Gynecology; Visit Provider Nurse Practitioner Obstetrics & Gynecology
DX: R10.2 Pelvic and perineal pain (principal); R10.31 Right lower quadrant pain; Z97.5 Presence of (intrauterine) contraceptive device
CPT/HCPCS: 76830; 76856

== ENCOUNTER 2020-10-26 18:25 | Emergency (ER) | payer OTHER, MEDICAID, SELFPAY ==
[2020-10-26 18:34] VITALS: BP 147/92; PULSE 86; RESP 20; TEMP 36.8; O2SAT 100
--- NOTE | 2020-10-26 18:38 | DI.RAD.S_ITS ---
PROCEDURE: XR ANKLE LT MIN 3V INDICATIONS: twisting injury TECHNIQUE: 3 views of the ankle were acquired. COMPARISON: None. FINDINGS: Bones: No fractures or dislocations. Ankle mortise is normally aligned. No suspicious bony lesions. Small plantar calcaneal spur. Soft tissues: Marked swelling at the lateral malleolus. A tibiotalar joint effusion is present. Achilles tendon appears normal. IMPRESSION: No acute osseous abnormality. Marked swelling at the lateral malleolus. Concern for ankle sprain. Dictated by: Jh Black M.D. on 10/26/2020 at 19:10 Approved by: Jh Black M.D. on 10/26/2020 at 19:11
--- NOTE | 2020-10-26 19:41 | ED_ITS ---
HPI - Extremity Injury (Lower) General Chief Complaint: Extremity Injury, Lower Stated Complaint: jumped and hurt left ankle Time Seen by Provider: 10/26/20 19:40 Source: patient Mode of arrival: Wheelchair History of Present Illness HPI Narrative: 39-year-old woman with no significant medical history presents with left ankle pain after landing on the foot at [place] odd [place] She describes no other injuries or specific concerns at this time. She has no complaints of knee pain. Related Data Previous Rx's Medication Instructions Recorded acetaminophen 650 mg PO Q6HR PRN 14 Days #60 tab 09/30/19 docusate sodium [DOK] 100 mg PO BID 14 Days #28 cap 09/30/19 ibuprofen 600 mg PO Q6HR PRN 14 Days #60 tab 09/30/19 Allergies Allergy/AdvReac Type Severity Reaction Status Date / Time No Known Drug Allergies Allergy Verified 07/30/18 12:37 Review of Systems Review of Systems ROS Unobtainable: All systems reviewed & are unremarkable except as noted in HPI and below Patient History Family History Mother Diabetes mellitus Social History marital status: number of children: 3 household members: spouse lives independently: Yes housing: house pets and animals: Yes education level: college Smoking Status: Never smoker Smoking Status: Never smoker Exam Narrative Exam Narrative: General: Alert appropriate in no acute distress Respiratory: Able to speak in full sentences, no obvious respiratory distress Skin: No obvious rashes, warm and dry Neurologic: Grossly intact no obvious asymmetries or abnormalities Psych: appropriate insight and affect, cooperative Extremity: Left ankle swollen medial and lateral without significant bruising or abrasions. She has tenderness at both malleoli and cannot bear weight. She has good blood flow distally Initial Vital Signs Initial Vital Signs: Vital Signs Temperature 98.2 F 10/26/20 18:34 Pulse Rate 86 10/26/20 18:34 Respiratory Rate 20 10/26/20 18:34 Blood Pressure 147/92 H 10/26/20 18:34 Pulse Oximetry 100 10/26/20 18:34 Procedures Orthopedic Splinting/Casting Left ankle sprain: Side: left Lower Extremity Injury Location: ankle Lower Extremity Immobilizer: stirrup splint Other Orthopedic Equipment: crutches Post splinting neuro exam: intact Post splinting vascular exam: intact Placed by: Provider Course Orders Ordered: ED Orders 10/26/20 18:38 XR ankle LT min 3V Stat Discontinued Medications Acetaminophen (Acetaminophen 325 Mg Tablet) 650 mg PO NOW ONE Stop: 10/26/20 20:05 Last Admin: 10/26/20 20:10 Dose: 650 mg Documented by: Ibuprofen (Ibuprofen 400 Mg Tablet) 400 mg PO NOW ONE Stop: 10/26/20 20:05 Last Admin: 10/26/20 20:10 Dose: 400 mg Documented by: Oxycodone/Acetaminophen (Oxycodone/Acetaminophen 5/325 Tablet) 1 tab PO NOW ONE Stop: 10/26/20 20:18 Oxycodone/Acetaminophen (Oxycodone/Apap 5/325 Prepack) 1 bottle MISC SEEINSTR ONE Stop: 10/26/20 20:18 Vital Signs Vital signs: Vital Signs - 8 hr 10/26/20 18:34 Temperature 98.2 F Pulse Rate 86 Respiratory Rate 20 Blood Pressure 147/92 H Pulse Oximetry 100 [facility] - Extremity Injury (Lower) Imaging Data Xr ankle: Radiologist's Impression: FINDINGS: Bones: No fractures or dislocations. Ankle mortise is normally aligned. No suspicious bony lesions. Small plantar calcaneal spur. Soft tissues: Marked swelling at the lateral malleolus. A tibiotalar joint effusion is present. Achilles tendon appears normal. IMPRESSION: No acute osseous abnormality. Marked swelling at the lateral malleolus. Concern for ankle sprain. Dictated by: Jh Black M.D. on 10/26/2020 at 19:10 [facility] Narrative Medical decision making narrative: Injury and x-rays are consistent with ankle sprain. She is placed in a stirrup splint and crutches are given. Discussed pain control. With the amount of pain she is having I did suggest that if she is still unable to bear weight she would benefit from additional imaging about a week to make sure we have not missed a hairline fracture. She is safe for home discharge Discharge Plan Departure Patient Disposition: Home Clinical Impression: Ankle sprain and strain Instructions: DI for Ankle Sprain Activity Restrictions/Additional Instructions: Thank you for coming in today The x-ray today does not show a broken bone. The swelling and the pain that your experiencing is very consistent with a bad sprain. I have placed an air splint that can be used as long as it is providing stability and comfort. Once the pain decreased enough that it does not feel useful anymore it is okay to discontinue this. Using 400 mg of ibuprofen (2 [id number] pills) and 1 Tylenol every 6 hours can be very helpful in controlling pain. For severe pain using 400 mg of ibuprofen and 1 Percocet can be helpful. Elevating the foot as much as possible and using ice can also be helpful. If you find that by the middle of next week your still having severe pain or can not walk on the foot, it would be appropriate to have it x-rayed again. Sometimes very small fractures are not seen until the begin to heal. I hope you heal quickly. Prescriptions: No Action acetaminophen 325 mg Tablet 650 mg PO Q6HR PRN (Reason: Pain, Mild (1-3)) 14 Days Qty: 60 RF: 2 docusate sodium [DOK] 100 mg Capsule 100 mg PO BID 14 Days Qty: 28 RF: 2 ibuprofen 600 mg Tablet 600 mg PO Q6HR PRN (Reason: Pain, Mild (1-3)) 14 Days Qty: 60 RF: 2 Referrals: Marla Lugo CNM [Primary Care Provider] -
[2020-10-26] MEDS: ACETAMINOPHEN 325 MG TABLET 650 MG PO (20:10)
[2020-10-26] MEDS: IBUPROFEN 400 MG TABLET PO (20:10)
[2020-10-26] MEDS: OXYCODONE/ACETAMINOPHEN 5/325 TABLET 1 TAB PO (20:25)
[2020-10-26] MEDS: OXYCODONE/APAP 5/325 PREPACK 1 BOTTLE MISC (20:25)
[2020-10-26 20:36] VITALS: BP 138/80; PULSE 74; RESP 16; O2SAT 97
== END 2020-10-26 20:36 | disposition home or self-care (01) ==
PROVIDERS: Emergency Provider Emergency Medicine; PCP Nurse Practitioner Obstetrics & Gynecology
DX: S93.402A Sprain of unspecified ligament of left ankle, initial encounter (principal); S96.912A Strain of unspecified muscle and tendon at ankle and foot level, left foot, initial encounter; Y93.39 Activity, other involving climbing, rappelling and jumping off
CPT/HCPCS: 73610; 99283; 99284

== ENCOUNTER → 2020-11-02 14:38 | Outpatient (CLI) | payer OTHER, MEDICAID, SELFPAY ==
--- NOTE | 2020-11-02 14:39 | DI.RAD.S_ITS ---
PROCEDURE: XR ANKLE LT MIN 3V INDICATIONS: LEFT ankle pain TECHNIQUE: 3 views of the ankle were acquired. COMPARISON: [facility], CR, XR ANKLE LT MIN 3V, 10/26/2020, 18:43. FINDINGS: Bones: No fractures or dislocations. Ankle mortise is normally aligned. No suspicious bony lesions. Soft tissues: Moderate tibiotalar joint effusion. Achilles tendon appears normal. IMPRESSION: Moderate tibiotalar joint effusion. No fracture Dictated by: Usman Duarte M.D. on 11/02/2020 at 15:19 Approved by: Usman Duarte M.D. on 11/02/2020 at 15:19
--- NOTE | 2020-11-02 14:39 | DI.RAD.S_ITS ---
PROCEDURE: XR FOOT LT MIN 3V INDICATIONS: LEFT ankle pain TECHNIQUE: None views of the foot were acquired. COMPARISON: [facility], CR, XR ANKLE LT MIN 3V, 11/02/2020, 14:54. FINDINGS: Bones: No fractures or dislocations. No suspicious bony lesions. Soft tissues: Moderate tibiotalar joint effusion. Achilles tendon appears normal. IMPRESSION: Moderate tibiotalar effusion. No acute fracture. Dictated by: Usman Duarte M.D. on 11/02/2020 at 15:18 Approved by: Usman Duarte M.D. on 11/02/2020 at 15:19
== END ==
PROVIDERS: Referring Provider Physician Assistant; Visit Provider Physician Assistant
DX: M25.572 Pain in left ankle and joints of left foot (principal); M25.475 Effusion, left foot
CPT/HCPCS: 73610; 73630

== ENCOUNTER → 2023-09-26 10:32 | Outpatient (CLI) | payer OTHER, SELFPAY ==
[2023-09-26 11:04] LABS: Add Manual Diff / Slide Review NO; Basophils Absolute Auto 100 /uL (0-100); Basophils Percent Auto 1.2 % (0-2); Eosinophils Absolute Auto 200 /uL (0-450); Eosinophils Percent Auto 5.4 % (2-4); Hematocrit 38.4 % (36-46); Hemoglobin 12.9 g/dL (12.0-16.0); Lymphocytes Absolute Auto 1800 /uL (1100-4500); Mean Corpuscular HGB Conc 33.6 % (30-36); Mean Corpuscular Hemoglobin 30.5 PG (26-34); Mean Corpuscular Volume 90.9 fL (80-100); Monocytes Absolute Auto 300 /uL (0-900); Monocytes Percent Auto 6.6 % (3-14); Neutrophils Absolute Auto 2000 /uL (1500-7000); Neutrophils Percent Auto 45.8 % (50-75); Platelet Count 249 X10^3/uL (150-400); Red Blood Cell Count 4.22 X10^6/uL (4.0-5.2); Red Cell Distribution Width 13.2 % (11.6-14.8); White Blood Cell Count 4.4 X10^3/uL (4.5-11.0)
[2023-09-26 11:34] LABS: Alanine Aminotransferase 25 IU/L (<35); Albumin 4.1 g/dL (3.5-5.0); Albumin Globulin Ratio 1.3 (1.0-2.8); Alkaline Phosphatase 53 U/L (38-126); Aspartate Aminotransferase 22 IU/L (14-36); BUN Creatinine Ratio 18.6 (6-22); Bilirubin Total 0.6 mg/dL (0.2-1.3); Blood Urea Nitrogen 11 mg/dL (7-17); Calcium 9.2 mg/dL (8.4-10.2); Carbon Dioxide 24 mmol/L (22-32); Chloride 108 mmol/L (98-107); Estimated Glomerular Filt Rate > 60 mL/min (>60); Globulin 3.2 g/dL (1.7-4.1); Glucose 101 mg/dL (70-100); HEMOLYSIS < 15 (0-50); Potassium 4.3 mmol/L (3.4-5.1); Sodium 136 mmol/L (137-145); Total Protein 7.3 g/dL (6.3-8.2)
[2023-09-26 12:23] LABS: Hep C Virus Ab w/Reflex Quant NEGATIVE s/c (NEGATIVE)
[2023-09-27 05:17] LABS: Cholesterol HDL Ratio 4.9 ratio (0.0-4.4); Cholesterol,Total 206 mg/dL (100-199); HDL Cholesterol 42 mg/dL (>39); LDL Cholesterol Cal 146 mg/dL (0-99); Triglycerides 101 mg/dL (0-149); VLDL Cholesterol Cal 18 mg/dL (5-40)
[2023-09-27 05:41] LABS: Free T3, Triiodothyronine Free 3.64 pg/mL (2.77-5.27); Free T4, Direct Thyroxine 1.16 ng/dL (0.78-2.19)
[2023-09-27 05:55] LABS: Thyroid Stimulating Hormone 3.04 uIU/mL (0.47-4.68)
[2023-09-27 18:12] LABS: Anti Thyroglobulin Antibody <1.0 IU/mL (0.0-0.9); Thyroid Peroxidase Antibodies <9 IU/mL (0-34)
== END ==
PROVIDERS: PCP Nurse Practitioner Family; Referring Provider Nurse Practitioner Family; Visit Provider Nurse Practitioner Family
DX: Z13.1 Encounter for screening for diabetes mellitus (principal); Z13.220 Encounter for screening for lipoid disorders; Z11.59 Encounter for screening for other viral diseases; N92.0 Excessive and frequent menstruation with regular cycle; N94.6 Dysmenorrhea, unspecified; R49.0 Dysphonia
CPT/HCPCS: 36415; 80053; 80061; 84439; 84443; 84481; 85025; 86376; 86800; 86803

== ENCOUNTER → 2023-09-27 16:00 | Outpatient (CLI) | payer OTHER, SELFPAY ==
--- NOTE | 2023-09-27 | DI.MG.S_ITS ---
BILATERAL DIGITAL SCREENING MAMMOGRAM 3D/2D WITH CAD: 09/27/2023 CLINICAL: Routine screening. Baseline exam. No prior exams were available for comparison. There are scattered areas of fibroglandular density in both breasts (category b / 25%-50% glandular tissue). Current study was also evaluated with a Computer Aided Detection (CAD) system. No significant masses, calcifications, or other findings are seen in either breast. IMPRESSION: NEGATIVE There is no mammographic evidence of malignancy. A 1 year screening mammogram is recommended. Based on the Tyrer Cuzick model (a risk assessment model) the patient's lifetime risk is 10.7% and her 10 year risk is 1.6%. According to the ACR, ACS, and NCCN guidelines, an annual breast MRI exam along with mammogram is recommended if the patient's lifetime risk is 20% or greater. This exam was interpreted at Station ID: [id number]. NOTE: For mammograms, a report in lay terms will be sent to the patient. Approximately 15% of breast malignancies will not be visualized mammographically. In the management of a palpable breast mass, a negative mammogram must not discourage biopsy of a clinically suspicious lesion. Electronically Signed By: Chasity warner/dali:09/30/2023 10:23:22 letter sent: Normal Exam ACR BI-RADS Category 1: Negative [id number]
== END ==
LOC: MAMMO 16:01
PROVIDERS: PCP Nurse Practitioner Family; Referring Provider Nurse Practitioner Family; Visit Provider Nurse Practitioner Family
DX: Z12.31 Encounter for screening mammogram for malignant neoplasm of breast (principal); R92.323 Mammographic fibroglandular density, bilateral breasts
CPT/HCPCS: 77063; 77067